=== PATIENT | male | born 1970 | race Caucasian/White ===

== ENCOUNTER 2017-05-11 09:49 | Inpatient (IN) ==
--- NOTE | 2017-05-11 10:17 | Anesthesia Evaluation PreOp ---
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[employer]ERSON History: Other (chronic back pain) Other Medical History: GERD, Other (anxiety) Anesthesia History: No Prior Anesthetic Complications, Past Anesthesia Alcohol Use: none Drug use: none Medications and Allergies Aspirin 81 mg PO DAILY #30 tab.chew 03/24/17 [Rx] Atorvastatin Calcium 80 mg PO DAILY #30 tablet 03/24/17 [Rx] Cholecalciferol (Vitamin D3) [Vitamin D3] 10,000 unit PO DAILY 03/24/17 [History ] Folic Acid 1 mg PO DAILY 03/24/17 [History] Lisinopril [Zestril] 20 mg PO BID 03/24/17 [History] Metoprolol Succinate 25 mg PO DAILY #30 tab.er.24h 03/24/17 [Rx] Omeprazole [PriLOSEC] 20 mg PO DAILY 03/24/17 [History] Tramadol HCl [Ultram] 50 mg PO QID PRN 03/24/17 [History] clonazePAM [Clonazepam] 1 mg PO TID 03/24/17 [History] Acetaminophen [Tylenol] 1,000 mg PO Q6HR PRN #90 tablet 04/12/17 [Rx] 3 Allergy/AdvReac Type Severity Reaction Status Date / Time No Known Allergies Allergy Verified 04/12/17 07:11 - Meds/Allergy Pre-op Review Medications Reviewed: Yes Allergies Reviewed: Yes Beta Blockers on Current Med List: Yes If Beta Blockers taken, Date/Time (Last Dose taken): 05/11/2017 at 0800 Anesthesia Results - Labs Laboratory Tests 05/10/17 05/10/17 05/10/17 09:59 09:59 09:59 WBC 7.7 Hgb 14.1 Hct 42.3 Plt Count 238 PT 10.5 INR 1.0 APTT 29.9 Sodium 138 Potassium 4.2 BUN 17 Creatinine 1.20 - Imaging Additional studies: 03/24/2017 LEFT HEART CATH Indications: Abnormal Test - Stress Impressions: Nonobstructive coronary artery disease. The left ventricle is normal and has normal contractility EF 65% Recommendations: Optimal medical therapy of patient's disease. Aggressive risk factor modification. 03/16/2017 Stress Impression: Pharmacologic stress ECG is negative for ischemia at level of heart rate achieved. Gated EF = 67%. Perfusion imaging was negative for ischemia or infarct. Transient ischemic dilatation is present (TID ratio 1.39), which is a nonspecific finding associated with significant left main or multi-vessel CAD. Dr. Bird notified via eCW. 03/10/2017 Echo Impressions: Unable to estimate RVSP due to lack of TR jet. Normal left ventricular diastolic function. No significant valvular dysfunction. LVEF 50-55%, not all wall segments well visualized (no true apical 2 chamber) Anesthesia Exam O2 Sat Height 1.75 m Height 1.75 m Weight 96.615 kg Weight 96.615 kg O2 Sat by Pulse Oximetry 96 Vital Signs Temp Pulse Resp BP Pulse Ox 98.0 F 52 18 135/75 96 05/11/17 10:13 05/11/17 10:13 05/11/17 10:13 05/11/17 10:13 05/11/17 10:13 Height: 5'9" Weight: 213 lbs NPO (# of Hours): 8 Pain Scale: 0 Pain Scale Used: Numeric (1 - 10) - HEENT Pupil (Motor): EOMI Mallampati: II Teeth: Normal, Missing Denture Type: Upper: Complete Oral Opening: Greater than 3 - [employer]ING [employer] LOC: Oriented [employer] Motor: Normal RUE, Normal LUE, Normal RLE, Normal LLE, Normal Face [employer] Sensory: Normal: RUE, LUE, RLE, Face, Deficit: LLE - Cardiac Rhythm: Regular Murmur: None - Pulmonary Breath Sounds: bilateral Clear Respiratory Effort: Symmetrical Anesthesia Assess/Plan ASA Score: 3 Modified [place] Scale for Level of Consciousness: Cooperative, oriented, and tranquil Anesthetic Plan: General Monitoring Plan: Standard Monitors Recovery Plan: PACU
[2017-05-11] MEDS ORDERED: *HR* Midazolam HCl 2 MG/2 ML VIAL ONE (10:21)
[2017-05-11] MEDS ORDERED: *HR* FentaNYL (PF) 100 MCG/2 ML VIAL ONE ×2 (10:21→12:27)
[2017-05-11] MEDS ORDERED: Vancomycin 1,500 MG in D5% in Water 250 ML IVPB ONE (10:21)
[2017-05-11] MEDS ORDERED: CeFAZolin Syr 2,000MG/20 ML 2,000 MG/20 ML SYRINGE IVPB ONE (10:21)
[2017-05-11] MEDS ORDERED: *HR* Propofol 200 MG/20 ML VIAL IVP ONE (10:21)
[2017-05-11] MEDS ORDERED: Ondansetron 4 MG/2 ML VIAL ONE (10:28)
[2017-05-11] MEDS ORDERED: Lidocaine -MPF 2% 2 ML VIAL ONE (10:28)
[2017-05-11] MEDS ORDERED: *HR* Succinylcholine 200 MG/10 ML VIAL IVP ONE (10:28)
[2017-05-11] MEDS ORDERED: *HR* Rocuronium Bromide 50 MG/5 ML VIAL ONE (10:28)
[2017-05-11] MEDS ORDERED: Ringers Solution, Lactated 1,000 ML IVC SCH (10:30)
[2017-05-11] MEDS ORDERED: *HR* Phenylephrine 10 MG/ML VIAL ONE (10:33)
[2017-05-11] MEDS ORDERED: Albuterol 2.5 MG/3 ML NEBULIZER ONE (10:54)
[2017-05-11] MEDS: Albuterol 2.5 MG/3 ML NEBULIZER IH ONE ×2 (10:56→15:37)
--- NOTE | 2017-05-11 11:32 | History & Physical Report ---
Date of Encounter: 05/11/17 Time of Encounter: 11:30 24 Hour HP Update - Instructions Instructions: If the History and Physical is less than 30 days old and was completed prior to A.M. admission and or procedure and has NOT been updated on calendar day of procedure please complete this update prior to performing procedure. - Update Patient reports changes in Medical Condition: No Changes in examination, assessment, or condition: No Changes in Medication: No Preop tests/diagnostics Reviewed: Yes Surgery Remains Indicated: Yes Consent for Planned Operative Procedure(s) Verified: Yes - Pre-Operative Checklist Preoperative Checklist Indicated: Yes Prophylactic Antibiotic Ordered: Yes (vancomycin due to risk of MRSA) Home Medications Include Beta Antoine: Yes Beta Antoine Taken Today (Day of Surgery): Yes Beta Antoine Taken Yesterday (Day Prior to Surgery): Yes Is VTE Prophylaxis Indicated?: Yes
[2017-05-11] MEDS ORDERED: Heparin 1,000 UNITS/500 mL 500 ML ONE (11:35)
[2017-05-11] MEDS ORDERED: *HR* Vasopressin 20 UNIT/ML VIAL ONE (11:43)
[2017-05-11] MEDS ORDERED: EPHEDrine 50 MG/ML VIAL ONE (11:55)
[2017-05-11] MEDS ORDERED: Dexamethasone 4 MG/ML VIAL ONE (12:20)
[2017-05-11] MEDS ORDERED: Ketamine *HR* 500 MG/10 ML MDV ONE (12:37)
[2017-05-11] MEDS ORDERED: *HR* Heparin 5,000 UNIT/ML VIAL ONE (12:49)
[2017-05-11] MEDS ORDERED: *HR* Meperidine 25 MG/ML SYRINGE IVP PRN (13:12)
[2017-05-11] MEDS ORDERED: *HR* Labetalol 20 MG/4 ML SYRINGE IVP PRN ×2 (13:12→15:17)
[2017-05-11] MEDS ORDERED: *HR* Promethazine 25 MG/ML VIAL IVP PRN (13:12)
[2017-05-11] MEDS ORDERED: *HR* HYDROmorphone 2 MG/ML SYRINGE ONE (14:06)
--- NOTE | 2017-05-11 14:08 | Operative Note ---
Date of procedure: 05/11/17 Pre-op diagnosis: Peripheral vascular disease with disabling claudication Post-op diagnosis: same Procedure: 1. Left common and superficial femoral endarterectomy with bovine pericardial patch angioplasty. 2. Left deep femoral endarterectomy. 3. Left lower extremity thrombectomy with 4 [place] fidel embolectomy catheter. Complications: None Anesthesia: ANNELISEA Surgeon: Xu Hubbard Estimated blood loss (cc): 50 Specimen: Left femoral plaque, left lower extremity thrombus Condition: stable Disposition: PACU Procedure in Detail: Indications: The patient is a 46 year old male with a history of hypertension, hyperlipidemia, coronary artery disease and tobacco abuse who presented to vascular clinic with complaints of disabling left lower extremity claudication. Angiography revealed discrete left superficial and deep femoral artery occlusions. Revascularization was recommended to alleviate his symptoms and reduce his risk of limb loss. Procedure: The patient was identified in the preoperative area. The risks, benefits, and alternatives of procedure were discussed and all questions were answered. He was taken to the operating room and placed in supine position on the operating room table. After the induction of general endotracheal anesthesia, he was cleaned and draped in normal sterile fashion. An oblique incision was made along the left groin sharply. Hemostasis was obtained with electrocautery. Through a process of blunt and sharp electrocautery dissection , the skin and subcutaneous tissues were incised and the mid to distal external iliac artery was dissected underneath the inguinal ligament and a vessel loop was passed around it. The common femoral artery, deep femoral artery and superficial femoral artery were dissected circumferentially distal to the bifurcation and surrounded with vessel loops. The patient received 5000 units of heparin intravenously. After waiting for the heparin to circulate, the vessels were occluded. A longitudinal arteriotomy was made sharply into the common femoral artery. It was extended into the superficial femoral artery distally. Firm, chronic thrombus was identified. The thrombus was removed. A thrombectomy was then performed on the superficial femoral, deep femoral and iliac arteries individually. Thrombus was retrieve from each vessel initially. After two negative passes with the catheter, each vessel was flushed with heparinized saline. Thickened, irregular and friable plaque was noted within the vessel. Therefore , using a dental freer, an endarterectomy was performed from on the common femoral artery. The endarterectomy was extended into the deep femoral artery using an eversion technique. A proximal supreficial endartectomy was also performed under direct vision. Endpoints were inspected and no elevated flaps were noted. The lumen was then irrigated with heparinzed saline. A bovine pericardial patch was cut to fit the defect in the common femoral and superficial femoral arteries. The patch was sutured in place with running 6-0 Prolene. Prior to completing the patch anastomosis, each vessel was flushed individually, then reoccluded. Heparinized saline was infused into the lumen. The patch was completed and flow was restored. Thrombin and Gelfoam were used to aid in hemostasis. Polyphasic signal was noted distal to the distal end of the patch as well as the posterior tibial artery. Wound was irrigated with antibiotic-containing saline. Platelet-rich and platelet-poor plasma were infused into the wound. The wounds were reapproximated with layer of 2-0 Vicryl followed by two layers of 3-0 and Vicryl 3-0 Monocryl in the subcuticular layer. Sterile dressings were applied. The patient was extubated and taken to recovery room in stable condition.
[2017-05-11] MEDS: *HR* HYDROmorphone (PF) 1 MG/ML SYRINGE IVP PRN ×3 (14:33→14:50)
[2017-05-11] MEDS ORDERED: *HR* HYDROcodone/Acet 5/325 mg TABLET PO PRN (15:17)
[2017-05-11] MEDS ORDERED: *HR* OxyCODONE Immed Rel 5 MG TABLET PO PRN (15:17)
[2017-05-11] MEDS ORDERED: Naloxone 0.4 MG/ML INJ IVP PRN (15:17)
[2017-05-11] MEDS ORDERED: *HR* Morphine 2 MG/ML SYRINGE IVP PRN (15:17)
[2017-05-11] MEDS ORDERED: Acetaminophen 325 MG TABLET PO PRN (15:17)
[2017-05-11] MEDS ORDERED: Ondansetron 4 MG/2 ML VIAL IVP PRN (15:17)
--- NOTE | 2017-05-11 15:23 | Anesthesia Evaluation Post Op ---
Date of Encounter: 05/11/17 Time of Encounter: 15:23 - Vital Signs Vital Signs: Vital Signs/O2 Sat, Most Current Temp Pulse Resp BP Pulse Ox 97.1 F L 56 20 126/70 94 05/11/17 15:13 05/11/17 15:13 05/11/17 15:13 05/11/17 15:13 05/11/17 15:13 - Lungs Lungs: Clear Ascult./Percussion - Airway Airway: Non-obstructed - Cardiovascular Regular Rate - Mental Status Mental Status: Alert & Oriented, Answers Appropriately - Pain Pain Scale: 6 Pain Scale used: Numeric (1 - 10) - Nausea Vomiting Nausea Vomiting: Not Present - Hydration Hydration: Tolerates oral liquids, [place] catheter - Discharge PostOp Status: Transfer Patient to floor
[2017-05-11] MEDS: Ketorolac 15 MG/ML VIAL IVP PRN (15:57)
[2017-05-11] MEDS: clonazePAM 1 MG TABLET PO SCH ×2 (15:57→20:07)
[2017-05-11] MEDS: traMADol 50 MG TABLET PO PRN ×2 (15:57→20:06)
[2017-05-11] MEDS ORDERED: *HR* Rivaroxaban 10 MG TABLET PO SCH (17:00)
[2017-05-11] MEDS: *HR* Metoprolol 5 MG/5 ML VIAL IVP SCH (17:33)
[2017-05-11] MEDS: CeFAZolin Premix DUPLEX 2,000 MG/50 ML BAG IVPB SCH (17:40)
[2017-05-11] MEDS: Gabapentin 300 MG CAPSULE PO SCH (20:05)
[2017-05-11] MEDS ORDERED: Vancomycin 0 MG in D5% in Water 250 ML IVPB ONE (22:00)
[2017-05-12] MEDS ORDERED: Vancomycin 1,500 MG in D5% in Water 250 ML IVPB ONE
[2017-05-12] MEDS: *HR* Metoprolol 5 MG/5 ML VIAL IVP SCH ×2 (00:24→06:28)
[2017-05-12] MEDS: CeFAZolin Premix DUPLEX 2,000 MG/50 ML BAG IVPB SCH (00:28)
[2017-05-12] MEDS: Ketorolac 15 MG/ML VIAL IVP PRN ×2 (00:34→07:56)
[2017-05-12 04:07] LABS: Basophils % 0.1 %; Hematocrit 35.7 % (37.5-50.1); Immature Granulocytes % 0.4 % (0-4); Lymphocytes # 1.3 K/mcL (0.6-4.6); Lymphocytes % 11.1 %; Mean Corpuscular HGB Conc 32.8 g/dL (31.6-35.5); Mean Corpuscular Hemoglobin 30.5 pg (28.0-33.3); Mean Corpuscular Volume 93.2 fL (83.0-100.0); Monocytes # 0.5 K/mcL (0.0-1.3); Monocytes % 4.1 %; Neutrophils # 9.5 K/mcL (1.6-8.9); Platelet Count 234 K/mcL (140-400); Red Blood Count 3.83 M/mcL (4.19-5.50); Red Cell Distribution Width 12.5 % (11.5-14.5); Segmented Neutrophils % 84.3 %
[2017-05-12 04:27] LABS: BUN/Creatinine Ratio 15 (6-26); Blood Urea Nitrogen 16 mg/dL (8-26); Calcium 8.4 mg/dL (8.6-10.8); Carbon Dioxide 27 mEq/L (19-29); Chloride 101 mEq/L (98-109); Glucose 132 mg/dL (70-99); Osmolality,Calculated 285 (280-300); Sodium 136 mEq/L (136-145); eGFR For African Americans > 60 (> 60); eGFR For Non-African Americans > 60 (> 60)
[2017-05-12 04:31] LABS: Potassium 4.4 mEq/L (3.5-4.5)
[2017-05-12 04:33] LABS: Hemoglobin 11.7 g/dL (12.9-16.9)
[2017-05-12] MEDS ORDERED: *HR* Heparin 5,000 UNIT/ML VIAL SQ SCH (06:00)
--- NOTE | 2017-05-12 06:24 | Discharge Summary ---
Date of Encounter: 05/12/17 Time of Encounter: 08:00 - Discharge Diagnosis (1) Atherosclerosis of [place] arteries of extremities with intermittent claudication, left leg Priority: Primary Status: Chronic Comments: The patient is postoperative day # 1 after left lower extermity thrombectomy and embolectomy. His foot is warm and he has palpable pulses. His incision is healing and is pain is well controlled. He will be discharged today. 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 The patient will be discharged on Xarelto. 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 (3) Essential hypertension Priority: Secondary Status: Chronic (4) Mixed hyperlipidemia Priority: Secondary Status: Chronic (5) Tobacco abuse Priority: Secondary Status: Chronic (6) Acute blood loss as cause of postoperative anemia Priority: Secondary Status: Acute Comments: He has acute expected postoperative blood loss anemia. The patient is hemodynamically stable without evidence of ongoing blood loss. - Discharge Medications Prescriptions: Rivaroxaban [Xarelto] 20 mg PO 1700 #30 tablet Home Medications: Aspirin 81 mg PO DAILY #30 tab.chew 03/24/17 [Rx] Cholecalciferol (Vitamin D3) [Vitamin D3] 10,000 unit PO DAILY 03/24/17 [History ] Lisinopril [Zestril] 20 mg PO BID 03/24/17 [History] Metoprolol Succinate 25 mg PO DAILY #30 tab.er.24h 03/24/17 [Rx] Omeprazole [PriLOSEC] 20 mg PO DAILY 03/24/17 [History] Tramadol HCl [Ultram] 50 mg PO QID PRN 03/24/17 [History] clonazePAM [Clonazepam] 1 mg PO TID 03/24/17 [History] Acetaminophen [Tylenol] 1,000 mg PO Q6HR PRN #90 tablet 04/12/17 [Rx] Atorvastatin Calcium 80 mg PO HS 05/11/17 [History] Gabapentin [Neurontin] 300 mg PO BID 05/11/17 [History] Rivaroxaban [Xarelto] 20 mg PO 1700 #30 tablet 05/12/17 [Rx] Allergies/Adverse Reactions: 3 Allergy/AdvReac Type Severity Reaction Status Date / Time No Known Allergies Allergy Verified 05/11/17 11:08 Date of admission: 05/11/17 15:15 Primary care physician: Lenora Haney CNP Procedure(s) Performed: Left lower extremity thrombectomy, left femoral endarterectomy. Discharging clinician: Xu Hubbard Anticipated date of discharge: 05/12/17 - Patient Status Disposition: Home, Self-Care Condition: Good Overall status at discharge: patient is back to baseline - Discharge Instructions Instructions: Rivaroxaban (By mouth) Follow Up With: Xu Hubbard MD [Partnered Physician] - 06/21/17 9:30 am Lenora Haney CNP [Primary Care Provider] - 05/17/17 3:45 pm Additional Instructions: May remove bandage and shower on 05/13/17. Wash wound gently and pat to dry. Apply dry gauze to wound daily for 7 days. No tub baths or swimming until 06/12/17. Call Dr. Hubbard at [phone] with questions or concerns. - Diet and Activity Activity: increase activity as tolerated - Hospital Course Hospital course: Mr. Haney is a 46 year old male who was admitted on 05/11/17. He underwent a left lower extremity thrombectomy and endarterectomy. He tolerated the procedure well. On postoperative day #1 his pedal pulses were palpable and he was healing well. He was noted to have acute expected postoperative blood loss anemia. He had no evidence of ongoing bleeding. He was started on Xarelto due to the embolus. He will be discharged today without complications. Time spent discussing smoking cessation with patient: 3 to 10 minutes - Time Spent with Patient Total time spent providing and/or coordinating discharge services: Exam Vital Signs, Last 4 Hours Temp Pulse Resp BP Pulse Ox 05/12/17 03:48 97.9 F 77 17 125/51 98 General: Present: Conversant HEENT: Present: Pupils equal Cardiac: Present: Reg Rate and Rhythm Lungs: Present: Normal Breath Sounds Neuro: Present: Alert and responsive, No focal deficits noted Abdomen: Present: Soft Vascular: Present: Normal capillary refill, Pulse, normal, Surgical incisions ( incision clean dry and intact without erythema, hematoma or drainage). Absent: Cyanosis, Edema Skin: Present: No rashes noted on visualized skin - VTE Documentation of Mechanical Device: Intermittent pneumatic compression device
[2017-05-12 07:19] VITALS: BP 122/56
[2017-05-12] MEDS: clonazePAM 1 MG TABLET PO SCH (07:54)
[2017-05-12] MEDS: Gabapentin 300 MG CAPSULE PO SCH (07:54)
[2017-05-12] MEDS ORDERED: Aspirin 81 MG TAB.CHEW PO SCH (09:00)
[2017-05-12] MEDS ORDERED: Metoprolol XL (24 HR) Succ 25 MG TAB.ER.24H PO SCH (09:00)
[2017-05-12] MEDS ORDERED: Lisinopril 20 MG TABLET PO SCH (09:00)
[2017-05-12] MEDS ORDERED: Cholecalciferol (D-3) 1,000 UNIT TABLET PO SCH (09:00)
== END 2017-05-12 09:41 | disposition home or self-care (01) | DRG 181 ==
LOC: SAMDAY 09:49 → 2NNU 15:15
PROVIDERS: ADMIT Surgery; ATTEND Surgery